=== PATIENT | male | born 1960 | race Caucasian/White ===

== ENCOUNTER 2017-09-13 09:19 | Outpatient (CLI) | payer BC ==
--- NOTE | 2017-09-13 14:14 | CT ---
ABDOMEN AND PELVIC CT SCAN WITH AND WITHOUT IV CONTRAST WITH MULTIPHASE IMAGING: History: 57-year-old male with unspecified hematuria without pain. FINDINGS: With and without contrast imaging of the abdomen and pelvis is performed. There is a 0.4 cm diameter pleural based nodule in the right lower lobe. Probable small hiatal herni a. There is an approximately 1.0 cm diameter probably hemangioma in the right lobe of the liver. Gal lbladder, pancreas, spleen, and adrenal glands are unremarkable. There is no renal calculus or acute obstruction. There are small bilateral less than 1.0 cm diameter renal circumscribed hypodensiti es without abnormal enhancement, evidence for small renal cysts. Normal appearing appendix. Unremark able appearing bladder. Small bilateral fat containing inguinal hernias. Lumbar spine spondylosis. IMPRESSION: Several less than 1 cm diameter circumscribed nonenhancing hypodensities of the kidneys, evidence fo r small renal cysts. No renal calculus or obstruction. Small fat containing inguinal hernias. Pro bable small hiatal hernia. Probable small right lobe of liver hemangioma. Approximately 0.[address] pleural based nodule in the right lower lobe. POS: H
[2017-09-13] MEDS ORDERED: Iopamidol 370 76% 100 ML VIAL ONE (15:52)
== END 2017-09-13 09:20 | disposition home or self-care (01) ==
LOC: CT 09:19
PROVIDERS: ATTEND Obstetrics & Gynecology
DX: R31.9 Hematuria, unspecified (principal); N28.1 Cyst of kidney, acquired; N28.89 Other specified disorders of kidney and ureter; K44.9 Diaphragmatic hernia without obstruction or gangrene; R91.1 Solitary pulmonary nodule
CPT/HCPCS: 74178